=== PATIENT | female | born 1940 | race Caucasian/White ===

== ENCOUNTER 2017-01-22 11:47 | Inpatient (IN) | payer OTHER ==
[~2017-01-22] VITALS: Ht 154.9 cm; Wt 81.6 kg
--- NOTE | ~2017-01-22 | H ---
[facility] [place] [address] HISTORY AND PHYSICAL Name: ISACC HUDSON Room #: 315-P ADM IN M.R.#: [id number] Admission: 01/22/17 Attend Phys: Eligio Brooks MD Discharge: Date of : 41 Report #: [id number] THIS REPORT FOR: //name// CC: Eligio Gant MD DATE OF SERVICE: 01/22/2017 REASON FOR ADMISSION: Possible seizure. HISTORY OF PRESENT ILLNESS: The patient is a pleasant 76-year-old female with multiple medical problems including coronary artery disease and CABG, hypothyroid, diabetes, hyperlipidemia, and COPD. She reportedly was in her wheelchair earlier today when she experienced a seizure-like episode. The patient herself has no recollection of this event and history was provided by her family who brought her to the emergency room. She reportedly was asymptomatic in her wheelchair, though she reports she had been feeling somewhat nauseated earlier in the day and also had some mild episodes of loose stools about 2-3 earlier today. She subsequently was noted to have shaking of her body and extremities following with some questionable eye rolling. Per the patient, she did not have any subsequent confusion and when seen by me today, she reports she is fully back to her baseline with no ongoing symptoms or complaints. She denies specific numbness, weakness, chest pain, fevers, chills, nausea, vomiting, diarrhea, dizziness, headaches, or other problems at this time. She is being admitted for further workup of possible seizure. PAST MEDICAL HISTORY: Includes: 1. Coronary artery disease with prior PCI times 5. 2. CABG in December 2014, at [facility]. 3. Hypothyroidism. 4. Diabetes. 5. Hyperlipidemia. 6. COPD. 7. Anxiety. 8. Depression. 9. Chronic pain. 10. Morbid obesity and spinal stenosis. PAST SURGICAL HISTORY: Includes: 1. Multiple stents and CABG in December. 2. Thyroidectomy. 3. Abdominal sleeve surgery for weight loss. 4. Umbilical hernia repair and cholecystectomy. 5. Bilateral tubal ligation. 6. Brain stem tumor and breast reduction. 7. Fusion surgery. [facility] [address] [place] [address] HISTORY AND PHYSICAL Name: SEPTEMBERISACC Room #: 315-P ADM IN ..#: [id number] Admission: 01/22/17 Attend Phys: Eligio Brooks MD Discharge: Date of : 41 Report #: [id number] MEDICATIONS: Refer to reconciliation note. Of note, the patient presently has been taken off blood pressure medications including metoprolol and lisinopril due to low blood pressure and has had cut down in her glimepiride dose. SOCIAL HISTORY: Remote tobacco use, quit many years ago. No alcohol use. Multiple children. FAMILY HISTORY: Brother had lupus and lung disease. Another brother from kidney failure. ALLERGIES: Reported COREG, reaction is unknown. PHYSICAL EXAMINATION: VITAL SIGNS: The patient's vitals today, she is afebrile, pulse of 52, respiratory rate of 15, O2 sat 96 on room air, and blood pressure 127/37. GENERAL: Awake, alert, in no acute distress. HEENT: Unremarkable. NECK: No JVD or thyromegaly. CARDIOVASCULAR: S1, S2 present, regular. present bilaterally. ABDOMEN: Soft, nontender. EXTREMITIES: Without edema. NEUROLOGIC: Awake, alert. No obvious focal findings. Good strength in all extremities. SKIN: Unremarkable. No rash or lesions. LABS AND INVESTIGATIONS: CBC notable for anemia 10.6, hemoglobin 9, platelet count low at 115. Chemistry with creatinine of 1.5, otherwise unremarkable. Urinalysis unremarkable. Head CT shows questionable right inferior basal ganglia lacunar infarct versus volume averaging. No other focal findings. ASSESSMENT: This is a 76-year-old female who presented with a possible seizure episode. PLAN: 1. Questionable seizure. At the present time, I will complete further workup of the same with an EEG as well as an MRI and involve neurology to further on the patient. She is asymptomatic at this time. This may have been a hypoglycemic event, she has had recent trouble with hypoglycemia and has had a glimepiride dose decreased, we will monitor her on sliding scale coverage while inpatient. 2. Diabetes, on glimepiride to be continued and continue sliding scale coverage. 3. Hypertension. Home meds adjusted and resumed. 4. CAD, stable. [address] [address] HISTORY AND PHYSICAL Name: ISACC HUDSON Room #: 315-P ADM IN M.R.#: [id number] Admission: 01/22/17 Attend Phys: Eligio Brooks MD Discharge: Date of : 41 Report #: [id number] 5. DVT prophylaxis with Lovenox. 6. Anemia and thrombocytopenia, chronic and stable. <ELECTRONICALLY SIGNED> By: Eligio Brooks MD 01/23/17 1504 1350 1613 Eligio Brooks MD /nt
[~2017-01-22 11:47] MED LIST: ABILIFY 5 MG TAB5 M1 PO; ACETAMINOPHEN650 M5; ADULT LOW DOSE81 MG PO; ADVAIR 250-501 EACH INH; AMARYL; AMARYL2 MG PO; AMARYL4 MG PO; AMBIEN 10 MG TA10 MG PO; AMLODIPINE BESYL5 MG PO; ASA5UEC PO; ASPIRIN; ASPIRIN EC325 M1 PO; ASPIRIN81 M2; ASPIRIN81 M2 PO; ATIVAN1 MG; ATIVAN1 MG PO; AUGMENTIN 500-1 EACH PO; BYETTA PEN 51 PENIN1 SQ; BYSTOLIC 5 MG5 M1 PO; BYSTOLIC10 MG PO; CEFDINIR300 MG PO; CELEXA 20 MG TA20 M1 PO; CELEXA40 MG PO; CIPRO250 M1 PO; CLONAZEPAM 0.50.5 M1 PO; CLOTRIMAZOLE PO; COMBIVENT INH; COMBIVENT INHALER INH; COREG PO; CYMBALTA60 MG; CYMBALTA60 MG PO; DEXILANT60 MG PO; DHA100 MG PO; DUONEB 2.5-0.5 M3 ML INH; ENDOCET 10-3251 EACH PO; FENOFIBRATE145 M1 PO; FISH OIL 1,0001 EAC5; FISH OIL 1,0001 EAC5 PO; FLEXERIL PO; FOSAMAX 70 MG T70 M1 PO; FUROSEMIDE 40 M40 M1 PO; FUROSEMIDE 80 M80 M1 OR; FUROSEMIDE 80 M80 M1 PO; FUROSEMIDE PO; GLUCOPHAGE1000 MG OR; GLUCOPHAGE1000 MG PO; HUMULINR100 SC; HYDROCODON-ACE1 EAC4 PO; HYDROCODON-ACE1 EAC8 PO; HYDROCODONE-AP1 EACH PO; IBUPROFEN 800800 M1 PO; INSULIN REGULAR; JANUMET 50-5001 EACH PO; K-DUR 20 MEQ T20 MEQ PO; KEFLEX500 MG PO; LANTUS SC; LANTUS SQ; LANTUSSOLASTAR SQ; LANTUSSOLASTAR SUBQ; LASIX 40 MG TAB40 M1 PO; LEVAQUIN 500 M500 M2 OR; LEVOTHYROXIN0.112 M1 PO; LEVOTHYROXIN0.125 M1 PO; LIDODERM; LISINOPRIL10 MG PO; LISINOPRIL2.5 MG PO; LOPRESSOR; LOPRESSOR 12.12.5 MG PO; LOPRESSOR 50 MG50 M1 PO; LOPRESSOR PO; LOPRESSOR25 PO; LORTAB 10 MG-3473 ML PO; LOTRIMIN AF10 ML PO; LOVAZA1000 MG PO; METFORMIN; METHADONE HCL 110 M1 PO; METHADONE HCL 110 MG PO; METOCLOPRAMIDE; MINITRAN1 EAC2 TRANSDERM; MOBIC15 MG PO; MOM; NITRODUR; NITROGLYCERIN0.4 MG SUBLING; NITROGLYCERIN1 EAC1 TRANSDERM; NITROPATCH; NITROPATCH TD; NITROQUICK0.4 MG SUBLING; NITROSTAT0.4 MG SL; NORCO 10-325 T1 EACH PO; NORTRIPTYLINE H25 M3 PO; NOVOLOG100 UNIT/1; NOVOLOG100 UNIT/1 SQ; NOVOLOG100 UNIT/1 SUBQ; OMEPRAZOLE20 MG PO; OMEPRAZOLE40 MG PO; PHENERGAN 25 MG25 M1 PO; PLAVIX 75 MG TA75 MG PO; POTASSIUM20 PO; PREDNISONE 10 M10 M1 PO; PREDNISONE 20 M20 MG PO; PRILOSEC 20 MG20 MG PO; PRINIVIL10 MG PO; PRINIVIL20 MG PO; PROAIR HFA8.5 GM INH; PROVENTIL HFA6.7 G1 INH; SENNA PO; SIMVASTATIN20 MG PO; SPIRIVA INH; SYNTHROID150 MCG PO; TOPROL XL25 MG PO; TOPROL XL50 MG PO; TRAMADOL; TRAMADOL 50 MG50 MG PO; TRICOR145 MG PO; TUMS PO; TYLENOL325 MG PO; VENTOLIN HFA INH8 GM INH; VITAMIN D31000 UNI2 PO; VITAMIN D350000 UNIT PO; VITAMIN E1000 UNI3 PO; WELLBUTRIN SR150 MG PO; ZOCOR 20 MG TAB20 M1 PO; ZOCOR40 MG PO; ZOFRAN 4 MG ORAL4 M1 DIS; ZOFRAN4 MG PO; ZOLOFT 50 MG TA50 M1 PO; [UNRECOGNIZED DRUG - OTHER]; [UNRECOGNIZED DRUG - OTHER]; [UNRECOGNIZED DRUG - OTHER]; [UNRECOGNIZED DRUG - OTHER] TD
[2017-01-22 11:48] VITALS: BP 114/40
[2017-01-22] MEDS ORDERED: ZANAFLEX4 MG PO (12:03)
[2017-01-22] MEDS ORDERED: TRAZODONE 150150 M1 PO (12:03)
[2017-01-22] MEDS ORDERED: LEXAPRO 10 MG T10 M1 PO (12:04)
[2017-01-22] MEDS ORDERED: TOPROL XL25 MG PO (12:04)
[2017-01-22] MEDS ORDERED: SYMBICORT160 MCG/4. INH (12:04)
[2017-01-22] MEDS ORDERED: PRAZOSIN 1 MG CA1 M1 PO (12:05)
[2017-01-22 12:12] LABS: ABSOLUTE NEUTROPHILS 3.8 thou/uL (1.4-8.2); BASOPHILS 0.5 % (0.0-2.0); EOSINOPHILS 1.1 % (0.0-3.0); HEMATOCRIT 32.1 % (37.0-47.0); HEMOGLOBIN 10.6 gm/dL (12.0-15.0); LYMPHOCYTES 21.4 % (24.0-44.0); MCH 29.2 pg (26.0-34.0); MCHC 33.1 g/dL (28.0-37.0); MCV 88.2 fL (80.0-100.0); MONOCYTES 6.9 % (1.0-8.0); PLATELET COUNT 115 thou/uL (150-400); POLYS 70.1 % (36.0-66.0); RBC 3.64 mil/uL (4.20-5.00); RDW 14.9 % (10.5-14.5); WBC 5.4 thou/uL (4.0-11.0)
[2017-01-22 12:19] LABS: CALCIUM 8.9 mg/dL (8.5-10.1); CREATININE 1.5 mg/dL (0.6-1.0); POTASSIUM 3.8 mmol/L (3.5-5.1)
[2017-01-22 12:24] LABS: MANUAL DIFF NO
[2017-01-22 13:13] LABS: URINE BILIRUBIN NEGATIVE (Negative); URINE BLOOD NEGATIVE (Negative); URINE COLOR YELLOW; URINE GLUCOSE-RANDOM* NEGATIVE (Negative); URINE KETONES NEGATIVE (Negative); URINE NITRITE NEGATIVE (Negative); URINE PROTEIN (DIPSTICK) NEGATIVE (Negative); URINE UROBILINOGEN 0.2 E.U./dl (0.2-1.0)
[2017-01-22 14:02] VITALS: BP 112/43
[2017-01-22 18:21] LABS: CHOLESTEROL 114 mg/dL (<200); HDL CHOLESTEROL 48 mg/dL (>40); LDL CHOLESTEROL 40 mg/dL (<100); TC:HDL 2.4 Ratio (Not establshd); TRIGLYCERIDE 134 mg/dL (<150); VLDL 27 mg/dL (<40)
[2017-01-22 19:16] LABS: FOLIC ACID 27.9 ng/mL (8.6-58.9)
[2017-01-22 20:45] VITALS: BP 177/56
[2017-01-22 23:45] VITALS: BP 160/61
[2017-01-23 04:15] VITALS: BP 128/51
[2017-01-23 06:08] LABS: GLYCOHEMOGLOBIN (HGB A1C) 5.2 % (4.8-5.6)
[2017-01-23 07:10] LABS: FREE T4 1.17 ng/dL (0.82-1.77)
[2017-01-23 11:49] VITALS: BP 112/54
[2017-01-23 15:09] VITALS: BP 112/54
[2017-01-24 13:10] LABS: ALPHA TOCOPHEROL 9.4 mg/L (6.5-21.5)
== END 2017-01-23 16:45 | disposition home or self-care (01) | DRG 101 ==
LOC: ER 11:47 → 3N 13:01 → EROBS 13:01 → 3N 14:04
PROVIDERS: Emergency Medicine; Psychiatry & Neurology Neurology
DX: R56.9 Unspecified convulsions (principal); E11.649 Type 2 diabetes mellitus with hypoglycemia without coma; I10 Essential (primary) hypertension; J44.9 Chronic obstructive pulmonary disease, unspecified; K21.9 Gastro-esophageal reflux disease without esophagitis; I25.10 Atherosclerotic heart disease of native coronary artery without angina pectoris; E89.0 Postprocedural hypothyroidism; E78.5 Hyperlipidemia, unspecified; E78.00 Pure hypercholesterolemia, unspecified; F32.9 Major depressive disorder, single episode, unspecified; F41.9 Anxiety disorder, unspecified; G89.29 Other chronic pain; E86.0 Dehydration; E66.01 Morbid (severe) obesity due to excess calories; D64.9 Anemia, unspecified; D69.6 Thrombocytopenia, unspecified; Z96.1 Presence of intraocular lens; I25.2 Old myocardial infarction; Z98.1 Arthrodesis status; Z84.89 Family history of other specified conditions; Z83.6 Family history of other diseases of the respiratory system; Z90.49 Acquired absence of other specified parts of digestive tract; Z95.1 Presence of aortocoronary bypass graft; Z98.42 Cataract extraction status, left eye; Z98.41 Cataract extraction status, right eye; Z90.3 Acquired absence of stomach [part of]; Z68.34 Body mass index [BMI] 34.0-34.9, adult; Z79.82 Long term (current) use of aspirin; Z79.899 Other long term (current) drug therapy; Z88.8 Allergy status to other drugs, medicaments and biological substances; Z87.891 Personal history of nicotine dependence; Z84.1 Family history of disorders of kidney and ureter; Z98.51 Tubal ligation status
CPT/HCPCS: 10096

== ENCOUNTER 2021-05-06 08:30 | Inpatient (IN) | payer OTHER, MEDICARE ==
[~2021-05-06] VITALS: Ht 152.4 cm; Wt 82.5 kg
--- NOTE | ~2021-05-06 | EMS ---
[facility] [address] [place] [address] EMS Patient Care Report Name: ISACC HUDSON Room #: 450-P [facility] IN M.R.#: [id number] Admission: 05/06/21 Attend Phys: Janak Houser MD Discharge: 05/11/21 Date of : 41 Report #: [id number] THIS REPORT FOR: //name// Report Transmitted: 05/06/2021 09:17 EMS Care Summary [place], [place]/[facility] Incident [id number] @ 05/06/2021 07:42 Incident Location [address] [place], [place] [id number] Patient ISACC HUDSON Female, 81 Years 1940 Patient Address [address] [place] [address] Patient History Diabetes,Hypertension (HTN),Cardiac Condition - Other,Cardiac - Stent, Patient Allergies Other drug allergy, Chief Complaint GI bleed/black stools Disposition Transported No Lights/[place] Dispatch Reason Hemorrhage/Laceration Transported To [facility] Narrative pt found ambulatory w/ Pumper 42 on scene. pt reports this AM she had sudden large amount of diarrhea/black stool. pt has hx of GI bleed approx 10-12 years ago. pt req eval at [facility]. she denies any pain or nausea. pt to cot, tx as listed in flow chart, transport w/o incident. pt in POC, rests quietly. Initial Vitals [facility] [address] [place] [address] EMS Patient Care Report Name: ISACC HUDSON Room #: 450-P [facility] IN M.R.#: [id number] Admission: 05/06/21 Attend Phys: Janak Houser MD Discharge: 05/11/21 Date of : 41 Report #: [id number] @08:15P: 96,R: 18,BP: 80/43, @07:59P: 110,R: 18,BP: 115/50,Pain: 0/10,GCS: 15,SpO2: 96,Revised Trauma: 12, Assessments @07:56MENTAL:No Abnormalities,SKIN:No Abnormalities,HEENT:Head/Face: No Abnormalities,LUNG SOUNDS:General: Diarrhea,ABDOMEN:General: Diarrhea,PELVIS//GI:EXTREMITIES:PULSE:Radial: 2+ Normal,NEURO:No Abnormalities, Impression Gastrointestinal hemorrhage Procedures @07:56ALS AssessmentResponse: Unchanged@07:57StretcherResponse: Unchanged@07:593-Lead ECGResponse: Unchanged@08:05Saline Lock 10cc (20 ga) Site: Antecubital-LeftResponse: UnchangedSucceeded Timeline 07:38,Call Received 07:38,Dispatch Notified 07:42,Dispatched 07:44,En Route 07:55,On Scene 07:56,At Patient 07:56,ALS Assessment,Response: Unchanged 07:57,Stretcher,Response: Unchanged 07:59,3-Lead ECG,Response: Unchanged 07:59,BP: 115/50 M,PULSE: 110,RR: 18 R,SPO2: 96 Ox,ETCO2: ,BG: ,PAIN: 0,GCS: 15, 08:05,Saline Lock 10cc 20 ga Site: Antecubital-Left,Response: UnchangedSucceeded, 08:08,Depart Scene 08:15,BP: 80/43 M,PULSE: 96,RR: 18 R,SPO2: Ox,ETCO2: ,BG: ,PAIN: ,GCS: , 08:37,At Destination 08:40,Call Closed Disclaimer v1.1 Copyright 2020 [employer] This EMS Care Summary contains data elements from the applicable legal record (which may be displayed differently). It is designed to provide pertinent information for the following purposes: continuity of care, clinical quality, and state data reporting. The complete legal record is available to ED staff and administrators of the receiving hospital in [employer]'s Patient Tracker. All data is provided "as is."
[~2021-05-06 08:30] MED LIST changes: +LEXAPRO 10 MG T10 M1 PO; +PRAZOSIN 1 MG CA1 M1 PO; +SYMBICORT160 MCG/4. INH; +TRAZODONE 150150 M1 PO; +ZANAFLEX4 MG PO
[2021-05-06 08:32] VITALS: BP 108/42
[2021-05-06 09:34] LABS: ABSOLUTE NEUTROPHILS 4.5 thou/uL (1.4-8.2); BASOPHILS 0.4 % (0.0-2.0); HEMATOCRIT 28.9 % (37.0-47.0); HEMOGLOBIN 9.4 gm/dL (12.0-15.0); LYMPHOCYTES 27.7 % (24.0-44.0); MCH 29.3 pg (26.0-34.0); MCHC 32.6 g/dL (28.0-37.0); MONOCYTES 7.3 % (1.0-8.0); PLATELET COUNT 100 thou/uL (150-400); POLYS 62.6 % (36.0-66.0); RBC 3.22 mil/uL (4.20-5.00); RDW 13.9 % (10.5-14.5); WBC 7.2 thou/uL (4.0-11.0)
[2021-05-06 09:37] LABS: APTT 25.4 Seconds (24.5-32.8); INR 1.04; PROTIME 11.3 Seconds (10.5-12.1)
[2021-05-06 09:41] LABS: CALCIUM 9.6 mg/dL (8.5-10.1); CREATININE 1.4 mg/dL (0.6-1.0); POTASSIUM 4.2 mmol/L (3.5-5.1)
[2021-05-06 09:50] LABS: ALBUMIN 2.8 g/dL (3.4-5.0); TOTAL BILIRUBIN 0.4 mg/dL (0.2-1.0); TOTAL PROTEIN 5.7 g/dL (6.4-8.2)
[2021-05-06 12:03] VITALS: BP 116/48
--- NOTE | 2021-05-06 12:11 | EKG ---
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 : 1940 Requested By: Kun Guan Order Number: [id number] MD: Eduin Fang Measurements Intervals [place] Rate: 79 P: 73 TN: 211 QRS: 20 QRSD: 150 T: -84 QT: 438 QTc: 503 Interpretive Statements Atrial-sensed ventricular-paced rhythm No further analysis attempted due to paced rhythm Baseline wander in lead(s) V1 No previous ECG available for comparison Electronically Signed On 05-06-2021 12:10:57 CDT by Eduin Fang [email or web address] <ELECTRONICALLY SIGNED> By: Eduin Fang MD, [facility] 05/06/21 1210 0844 0844 Eduin Fang MD, [facility] /EPI
[2021-05-06 13:33] LABS: URINE BILIRUBIN NEGATIVE (Negative); URINE BLOOD 1+ (Negative); URINE CLARITY SL CLOUDY; URINE COLOR YELLOW; URINE GLUCOSE-RANDOM* NEGATIVE (Negative); URINE KETONES NEGATIVE (Negative); URINE PROTEIN (DIPSTICK) NEGATIVE (Negative); URINE SPECIFIC GRAVITY 1.025 (1.005-1.035); URINE UROBILINOGEN 0.2 E.U./dl (0.2-1.0)
[2021-05-06 13:36] LABS: URINE LEUKOCYTES-REFLEX 1+ (Negative); URINE NITRITE-REFLEX POSITIVE (Negative)
[2021-05-06 13:43] VITALS: BP 112/53
[2021-05-06 13:51] LABS: BACTERIA-REFLEX >30 Many /HPF (None Seen); CRYSTALS None Seen /LPF (None Seen); HYALINE CASTS 0-3 Few /LPF (None Seen); SQUAMOUS >10 Many /LPF (0-3); URINE RBC 1-2 Rare /HPF (NONE SEEN); URINE WBC-REFLEX >25 Many /HPF (0-5)
[2021-05-06 14:30] VITALS: BP 133/66
[2021-05-06] MEDS ORDERED: KLOR-CON M2020 MEQ PO (15:44)
[2021-05-06] MEDS ORDERED: FUROSEMIDE 20 M20 MG PO (15:45)
[2021-05-06] MEDS ORDERED: ISOSORBIDE MON120 MG PO (15:48)
[2021-05-06] MEDS ORDERED: CHILDREN'S ASPI81 M1 PO (15:49)
[2021-05-06] MEDS ORDERED: LEVO-T100 MCG PO (15:49)
[2021-05-06] MEDS ORDERED: PROTONIX40 M2 PO ×2 (15:50→15:57)
[2021-05-06] MEDS ORDERED: PRIMIDONE50 MG PO (15:50)
[2021-05-06] MEDS ORDERED: COLACE100 MG PO (15:51)
[2021-05-06] MEDS ORDERED: ALPHA LIPOIC A200 M1 PO (15:52)
[2021-05-06] MEDS ORDERED: VITAMIN D310 MC2 PO (15:52)
[2021-05-06] MEDS ORDERED: IRON18 M1 PO (15:53)
[2021-05-06] MEDS ORDERED: GLIMEPIRIDE1 MG PO (16:02)
[2021-05-06] MEDS ORDERED: PRAVASTATIN SOD40 MG PO (16:03)
--- NOTE | 2021-05-06 16:51 | NUR ---
PATIENT ARRIVED FROM GI LAB POST EGD AT APPROX 1630. PATIENT SEEMINGLY TIRED BUT A&OX4. PROTONIX IV DRIP INFUSINHGH ON LAC. EGD CAME BACK NEGATIVE; COLONOSCOPY TO BE DONE TOMORROW AM. PATIENT ON CLEAR LIQUIDS NOW, NPO AFTER MIDNIGHT. PATIENT WAS X1 TO BSC AND DID WELL. MED REC COMPLETE & PROVIDER NOTIFIED TO RESTART MEDS. AWARE OF H&H; STILL PENDING RECENT BLOOD DRAW. 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 FALL PRECAUTIONS REMAIN IN PLACE. FREQUENT MONITORING CONTINUED
[2021-05-06 18:27] LABS: HEMATOCRIT 24.4 % (37.0-47.0); HEMOGLOBIN 7.9 gm/dL (12.0-15.0)
[2021-05-06 19:31] VITALS: BP 101/49
--- NOTE | 2021-05-07 02:34 | NUR ---
TODAY THIS PT HAS BEEN A/V PACED ON THE HEART MONITOR WITH SOME ABDOMIAL DISCOMFORT. SHE HAS HAD A FEW VERY BLOODY STOOLS IN WHICH SHE DID STATE THAT SHE DIDN'T FEEL TO GOOD. SHE HAD STABLE VS WERE COMPLETED AND HOSPITALIST WAS CONTACTED NO NEW ORDERS WERE GIVEN. OTHERWISE SHE HAS FINISHED HER BOWEL PREP AND HAS BEEN ASLEEP FOR SOME OF THE NIGHT WELL NPO SINCE MIDNIGHT PENDING HER PROCEDURE TODAY.
[2021-05-07 06:07] LABS: HEMATOCRIT 22.7 % (37.0-47.0); HEMOGLOBIN 7.3 gm/dL (12.0-15.0); MCH 29.2 pg (26.0-34.0); MCHC 32.3 g/dL (28.0-37.0); MCV 90.2 fL (80.0-100.0); RBC 2.51 mil/uL (4.20-5.00); RDW 14.2 % (10.5-14.5); WBC 5.6 thou/uL (4.0-11.0)
[2021-05-07 06:20] LABS: CALCIUM 8.7 mg/dL (8.5-10.1); CREATININE 1.4 mg/dL (0.6-1.0); POTASSIUM 3.9 mmol/L (3.5-5.1)
[2021-05-07 07:52] VITALS: BP 121/49
--- NOTE | 2021-05-07 10:06 | P ---
[facility] [place] [address] [place] [address] PROCEDURE REPORT Name: ISACC HUDOSN Room #: 450-P [facility] IN M.R.#: [id number] Admission: 05/06/21 Attend Phys: Janak Houser MD Discharge: 05/11/21 Date of : 41 Report #: [id number] THIS REPORT FOR: cc: Asad Reyes MD, Matthew S. MD McElhinney, Christian C. MD ~ cc: Janak Collado MD DATE OF SERVICE: 05/07/2021 PROCEDURE PERFORMED: Colonoscopy with biopsies and bleeding control. HISTORY OF PRESENT ILLNESS: The patient is an 81-year-old female who presented through the emergency room on 05/05/2021 with melanotic stools, generalized weakness. She does have a history of gastroesophageal reflux disease. She is on Protonix b.i.d. with Pepcid. Her admitting hemoglobin was 9.4, it dropped to 7.3. I performed an upper endoscopy on her yesterday, which showed a mild patch of gastritis, but otherwise normal. No stigmata of bleeding. No evidence of blood throughout the upper exam. Her last colonoscopy was greater than 10 years ago. No family history of colon cancer. The patient had been on aspirin, which has been held. She also has been on oral iron. Plan is for a colonoscopy. DESCRIPTION OF PROCEDURE: The risks and benefits of the procedure were explained to the patient, those risks including but not limited to bleeding, perforation and the risk of sedation. She understood these risks and gave informed consent. Sedation was given using propofol per anesthesia. Next, a digital rectal exam was initially performed, which was normal. Next, using a standard Olympus colonoscope, the scope was placed in the patient's anus and advanced under direct vision to the cecum. The overall prep was excellent. The cecum and ileocecal valve were normal in appearance. There was some small amount of bright red blood and old blood mixed in the ascending colon. The terminal ileum was intubated, which was normal. In the ascending colon, multiple diverticula were noted, one in particular had what appeared to be a fresh clot on the edge. I suspect this was likely a source of recent diverticular bleed. This was treated with two endoclips. No evidence of bleeding after endoclip was placed. Again, there was no active bleeding, but a fresh clot was noted right on the edge of the diverticulum. Near the hepatic flexure was a 2 cm lipoma. No stigmata of bleeding. In the ascending colon also was a 4 mm sessile polyp. This was removed with cold forceps. In the transverse, descending and sigmoid colon, multiple diverticula were also noted, but no stigmata of bleeding. The rectal mucosa was normal. On retroflexion, no abnormalities were noted. The scope was then withdrawn and the procedure terminated. The patient tolerated the procedure well. IMPRESSION: 1. Suspect diverticular bleed from ascending colon, one with a fresh clot [address] [address] PROCEDURE REPORT Name: ISACC HUDSON Room #: 450-P [facility] IN M.R.#: [id number] Admission: 05/06/21 Attend Phys: Janak Houser MD Discharge: Date of : 41 Report #: [id number] noted. No active bleeding at this time, but again suspect this may have been the etiology of recent melanotic stools. This was treated with two endoclips. 2. Small ascending colon polyp removed. 3. Lipoma. 4. Pandiverticulosis. RECOMMENDATIONS: 1. Await biopsy results. 2. Observe the patient post-procedure. 3. We will advance diet and continue to monitor hemoglobin closely. Thank you for allowing me to participate in her care. <ELECTRONICALLY SIGNED> By: Bin Corey MD 05/07/21 1006 0841 0900 Bin Corey MD /nt
--- NOTE | 2021-05-07 10:06 | P ---
[facility] [place] [address] PROCEDURE REPORT Name: ISACC HUDSON Room #: 450-P [facility] IN M.R.#: [id number] Admission: 05/06/21 Attend Phys: Janak Houser MD Discharge: 05/11/21 Date of : 41 Report #: [id number] THIS REPORT FOR: cc: Asad Reyes MD, Matthew S. MD McElhinney, Christian C. MD ~ cc: Asad Reyes DATE OF SERVICE: 05/06/2021 PROCEDURE PERFORMED: Upper endoscopy. HISTORY OF PRESENT ILLNESS: The patient is an 81-year-old female who reports melanotic stools starting last evening. She does take oral iron, but she states these stools were different in color and consistency than previously. She has a history of gastroesophageal reflux disease, takes Protonix b.i.d. and Pepcid daily. She denies any dysphagia. Last EGD and colonoscopy more than 10 years ago. She denies any significant abdominal pain. She does take aspirin on a daily basis as well as NSAIDs on a p.r.n. basis. Plan is for upper endoscopy. Hemoglobin on admission is 9.4. DESCRIPTION OF PROCEDURE: The risks and benefits of the procedure were explained to the patient, those risks including but not limited to bleeding, perforation, and the risk of sedation. She understood these risks and gave me informed consent. Sedation was given using propofol per anesthesia. Next, using a standard Olympus upper endoscope, the scope was placed in the patient's mouth and advanced under direct vision through the esophagus, stomach and into the second portion of the duodenum. The larynx was normal in appearance. The esophagus was normal throughout. The GE junction was normal. Upon entering the stomach, a small hiatal hernia was noted. A small area of gastritis was noted in the upper gastric body. No evidence of ulcerations or erosions. There was no evidence of blood throughout the exam today. Otherwise, normal gastric mucosa. The pylorus was normal and patent. The duodenal bulb, first and second portion were all normal. The scope was then withdrawn and the procedure terminated. The patient tolerated the procedure well. IMPRESSION: 1. Mild area of gastritis. No active bleeding, no ulcerations. 2. Small hiatal hernia. 3. Otherwise, normal upper endoscopy. RECOMMENDATIONS: We will discuss options with the patient. We would consider proceeding with colonoscopy next tomorrow. [address] [address] PROCEDURE REPORT Name: ISACC HUDSON Room #: 450-P [facility] IN M.R.#: [id number] Admission: 05/06/21 Attend Phys: Janak Houser MD Discharge: Date of : 41 Report #: [id number] Thank you for allowing me to participate in her care. <ELECTRONICALLY SIGNED> By: Bin Corey MD 05/07/21 1006 1424 01 Bin Corey MD /spike
--- NOTE | 2021-05-07 10:59 | NUR ---
ASSUMED PT CARE THIS AM. PT A&OX4, ABLE TO MAKE NEEDS KNOWN. PATIENT REPORTED NO PAIN, BUT REPORTED FEELING WEAK. PATIENT BED ALARM IS ON AND REMINDED TO CALL WHEN NEEDED. PATIENT HAD A COLONOSCOPY THIS AM. MEDICAITONS TAKEN WITHOUT ISSUE FOLLOWING COLONOSCOPY. PATIENT IS UP AROUND ROOM WITH ASSIST, REMAINS CONTINENT. IV PATENT, MEDICATION INFUSING. CALL LIGHT WITHIN REACH.
[2021-05-07 16:05] VITALS: BP 100/36
[2021-05-07 19:04] VITALS: BP 119/36
[2021-05-08] VITALS (8 sets, daily range): BP systolic 100–141; BP diastolic 35–89
--- NOTE | 2021-05-08 02:22 | NUR ---
patient c/o soa with activities, o2 sat was 96%, 2 litres given. patient in bed asleep at this time no soa or distres noted. no gi bleed this shift. patient is on stand by assist patient ambulates with steady gaits. patient in bed asleep at this time breathing regular and unlaboured.
[2021-05-08 05:35] LABS: MCH 29.7 pg (26.0-34.0); RBC 2.07 mil/uL (4.20-5.00); WBC 5.8 thou/uL (4.0-11.0)
[2021-05-08 05:38] LABS: MCHC 33.1 g/dL (28.0-37.0); MCV 89.9 fL (80.0-100.0); RDW 14.4 % (10.5-14.5)
[2021-05-08 05:56] LABS: CALCIUM 8.2 mg/dL (8.5-10.1); CREATININE 1.4 mg/dL (0.6-1.0); POTASSIUM 3.7 mmol/L (3.5-5.1)
[2021-05-08 05:58] LABS: HEMATOCRIT 18.6 % (37.0-47.0); HEMOGLOBIN 6.2 gm/dL (12.0-15.0)
--- NOTE | 2021-05-08 11:33 | NUR ---
ASSUMED PT CARE THIS AM. PT A&OX4, ABLE TO MAKE NEEDS KNOWN. PATIENT REPORTING SOME WEAKNESS AND SHORTNESS OF BREATH WITH EXERTION. PATIENT TO GET A BLOOD TRANSFUSION THIS AM, COMPLETED WITHOUT ANY ISSUES. PATIENT REPORTING NO PAIN. PATIENT IS ON 2 LITERS OF OXYGEN VIA NC. PATIENT UP WITH ASSIST, REMAINS CONTINENT. MEDICATIONS TAKEN WITHOUT ISSUE. FALL PRECAUTIONS ARE IN PLACE.
[2021-05-08 13:29] LABS: HEMATOCRIT 25.4 % (37.0-47.0)
[2021-05-08 13:36] LABS: HEMOGLOBIN 8.3 gm/dL (12.0-15.0)
--- NOTE | 2021-05-09 00:51 | NUR ---
PATIENT AOX4 MAKES NEEDS KNOWN.PATIENT AMBULATES WITH STEADY GAITS. PATIENT DENIED PAIN OR DISCOMFORT. PATIENT ON 2L OF OXYGEN FOR COMFORT, NO SOA OR DISTRESS NOTED THIS SHIFT. FALL PRECAUTION IN PLACE.PATIENT IN BED ASLEEP AT THIS TIME BREATHING REGULAR AND UNLABOURED.
[2021-05-09 03:02] LABS: HEMATOCRIT 22.7 % (37.0-47.0); HEMOGLOBIN 7.5 gm/dL (12.0-15.0); MCHC 33.1 g/dL (28.0-37.0); MCV 90.4 fL (80.0-100.0); RBC 2.51 mil/uL (4.20-5.00); RDW 14.2 % (10.5-14.5); WBC 5.8 thou/uL (4.0-11.0)
[2021-05-09 03:21] LABS: CALCIUM 8.4 mg/dL (8.5-10.1); CREATININE 1.3 mg/dL (0.6-1.0); POTASSIUM 3.9 mmol/L (3.5-5.1)
[2021-05-09 07:45] VITALS: BP 118/46
[2021-05-09 10:14] LABS: % SATURATION 19 % (20-39); IRON 36 ug/dL (50-170); TIBC 192 ug/dL (250-450)
[2021-05-09 10:15] LABS: FOLIC ACID 6.7 ng/mL (8.6-58.9)
--- NOTE | 2021-05-09 12:02 | NUR ---
ASSUMED PT CARE THIS AM. PT A&OX4, ABLE TO MAKE NEEDS KNOWN. PATIENT REPORTING SHORTNESS OF BREATH WITH ACTIVITIES. ORDER RECIEVED FOR RT TREATMENTS. PATIENT REPORTING SOME WEAKNESS, AND NEUROPATHY TO BILATERAL FEET AND RIGHT HAND. IV PATENT, SALINE LOCKED. PATIENT ON 2 LITERS OXYGEN PRN. PATIENT REMAINS CONTINENT, UP WITH ASSIST TO THE BATHROOM. FALL PRECAUTIONS ARE IN PLACE, CALL LIGHT WITHIN REACH.
[2021-05-09 16:12] VITALS: BP 135/45
[2021-05-09 20:16] VITALS: BP 148/52
[2021-05-09 22:40] VITALS: BP 132/42
[2021-05-10] VITALS (7 sets, daily range): BP systolic 112–140; BP diastolic 44–60
--- NOTE | 2021-05-10 01:00 | NUR ---
pain controlled this shift. no bleeding noted this shift. patient had not had a bm since 05/07 and requested milarax in the am. patient ambulated to the bathroom with steady gaits. fall precaution in place. patient in bed asleep at this time breathing regular and unlaboured.
[2021-05-10 03:12] LABS: HEMATOCRIT 23.7 % (37.0-47.0); HEMOGLOBIN 7.9 gm/dL (12.0-15.0); MCH 30.1 pg (26.0-34.0); MCHC 33.2 g/dL (28.0-37.0); MCV 90.7 fL (80.0-100.0); RBC 2.61 mil/uL (4.20-5.00); RDW 14.5 % (10.5-14.5); WBC 5.3 thou/uL (4.0-11.0)
[2021-05-10 03:46] LABS: CALCIUM 8.6 mg/dL (8.5-10.1); CREATININE 1.2 mg/dL (0.6-1.0); MAGNESIUM 1.8 mg/dL (1.8-2.4)
--- NOTE | 2021-05-10 11:50 | NUR ---
ASSUMED PT CARE THIS AM. PT IS ALERT & ORIENTED X4. PT HAS IV SITE ON L UA. PT IS NO CODE. PT IS UP WITH ASSIST X1 WITH WALKER TO THE BATHROOM. PT IS ON TELE MONITOR ON. PT IS ON ROOM DURING DAY AND 2L AT NIGHT. PT IS ACCUCHECK ACHS. NO C/O NAUSEA AND VOMITING THIS AM. WILL CONTINUE TO MONITOR PT. FOLLOW POC.
--- NOTE | 2021-05-10 12:42 | 2DMMODE ---
[facility] [address] [place] [address] 2 D/M-MODE ECHOCARDIOGRAM Name: ISACC HUDSON Room #: 450-P [facility] IN M.R.#: [id number] Admission: 05/06/21 Attend Phys: Janak Houser MD Discharge: 05/11/21 Date of : 41 Report #: [id number] THIS REPORT FOR: cc: Asad Reyes MD, Matthew S. MD Park, Jin S. MD ~ APPROVED REPORT Study performed: 05/10/2021 11:50:30 EXAM: Comprehensive 2D, Doppler, and color-flow Echocardiogram Patient Location: Bedside Room #: 450 Status: routine BSA: 1.79 HR: 81 bpm BP: 117/47 mmHg Rhythm: Pacemaker Other Information Study Quality: Adequate Indications COPD Diabetes Dyspnea CAD Chest Pain Hypertension/HDD 2D Dimensions RVDd: 33.35 mm IVSd: 9.53 (7-11mm) LVOT Diam: 20.09 (18-24mm) LVDd: 48.75 mm PWd: 10.03 (7-11mm) Ascending Ao: 33.41 (22-36mm) LVDs: 35.95 (25-40mm) Left Atrium: 44.97 (27-40mm) Aortic Root: 32.20 mm IVC: 17.00 mm Volumes Left Atrial Volume (Systole) Single Plane 4CH: 77.07 mL Single Plane 2CH: 53.77 mL LA ESV Index: 41.00 mL/m2 [facility] [address] [place] [address] 2 D/M-MODE ECHOCARDIOGRAM Name: SEPTEMBER,ISACC Room #: 450-P [facility] IN ..#: [id number] Admission: 05/06/21 Attend Phys: Janak Houser, Discharge: Date of : 41 Report #: [id number] Aortic Valve AoV Peak Devon.: 1.77 m/s AO Peak Gr.: 12.51 mmHg LVOT Max P.55 mmHg LVOT Max V: 1.07 m/s ELMO Vmax: 1.91 cm2 Mitral Valve MV Peak Gr.: 15.43 mmHg MV Mean Gr.: 7.36 mmHg E/A Ratio: 0.8 MV Decel. Time: 335.75 ms MV E Max Devon.: 1.41 m/s MV A Devon.: 1.68 m/s MV Max Devon.: 1.96 m/s MV Mean Devon.: 1.27 m/s MV VTI: 422.47 mm MV PHT: 97.37 ms MVA (PHT): 2.69 cm2 IVRT: 106.11 ms Pulmonary Valve PV Peak Devon.: 1.21 m/s PV Peak Gr.: 5.86 mmHg Pulmonary Vein P Vein S: 0.52 m/s P Vein A: 0.23 m/s P Vein D: 0.31 m/s P Vein A Dur.: 110.7 msec P Vein S/D Ratio: 1.68 Tricuspid Valve TR Peak Devon.: 2.75 m/s TR Peak Gr.: 30.26 mmHg PA Pressure: 35.00 mmHg Left Ventricle The left ventricle is normal size. There is normal LV segmental wall motion. There is normal left ventricular wall thickness. The left ventricular systolic function is normal. The left ventricular ejection fraction is within the normal range. LVEF is 55-60%. Grade I - abnormal relaxation pattern. Right Ventricle The right ventricle is normal size. The right ventricular systolic function is normal. Pacemaker lead is present in the right ventricle. Atria Left atrium is dilated. Right atrium is at the upper limits of normal. Pacemaker lead is present in the right atrium. [facility] [address] [place] [address] 2 D/M-MODE ECHOCARDIOGRAM Name: ISACC HUDSON Room #: 450-P [facility] IN [facility]#: [id number] Admission: 05/06/21 Attend Phys: Janak Houser, Discharge: Date of : 42 Report #: [id number] Aortic Valve The Aortic valve is sclerotic. No aortic regurgitation is present. There is no aortic valvular stenosis. Mitral Valve The mitral valve is normal in structure. There is mitral annular calcification. Mild to moderate mitral regurgitation. No evidence of mitral valve stenosis. Tricuspid Valve The tricuspid valve is normal in structure. There is mild tricuspid regurgitation. Estimated PAP 38 mmHg. There is mild-moderate pulmonary hypertension. Pulmonic Valve The pulmonary valve is normal in structure. There is no pulmonic valvular regurgitation. Great Vessels IVC is normal in size and collapses >50% with inspiration. Pericardium There is no pericardial effusion. <Conclusion> The left ventricle is normal size. There is normal left ventricular wall thickness. The left ventricular systolic function is normal. Grade I - abnormal relaxation pattern. The right ventricle is normal size. Pacemaker lead is present in the right ventricle. Left atrium is dilated. The Aortic valve is sclerotic. There is mitral annular calcification. Mild to moderate mitral regurgitation. There is mild tricuspid regurgitation. Estimated PAP 38 mmHg. <ELECTRONICALLY SIGNED> By: Jaswinder Yhe MD 05/10/21 1241 1241 1241 Jaswinder Yeh MD /INF
--- NOTE | 2021-05-10 16:01 | NUR ---
PT ADMITTED RELATED TO GI BLEED, COLONOSCOPY-PANDIVERTICULOSIS. CM REVIEWED CHART AND SPOKE WITH CARE TEAM. CM MET WITH PT AT BEDSIDE THIS DAY. PT APPEARED TO BE A&O X4. CM ROLE INTRODUCED. PT INDICATED SHE LIVES IN A HOUSE WITH HER DTR JAUN WITH 2 STEPS TO ENTER AND NO STEPS INSIDE. 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 PT INDICATED SHE HAS A FWW AND A CANE FOR HOME USE. PT INDICATED SHE HAD HH IN THE PAST AND WOULD BE RECEPTIVE TO SERVICES AGAIN UPON DC. SHE INDICATED NO PREFERENCE FOR PROVIDER. CM TO SEND REFERRAL TO [facility]. PT TO HAVE STRESS TEST TOMORROW. CM FOLLOWING REGARDING DC PLANNING.
--- NOTE | 2021-05-11 00:39 | NUR ---
UPON SHIFT ASSESSMENT, PT AOX4. PT REPORTS 8/10 HEADACHE PAIN. PT RECEIVING PRN PO APAP Q4HR. PT DENIES SOB WHILE ON ROOM AIR, REFUSING O2 SUPPLEMENTATION AT HS. PT TOLERATING PO INTAKE OF FLUIDS AND REGULAR DIET WITHOUT ISSUE, NPO AT MIDNIGHT. PT WITHOUT NAUSEA OR EMESIS. PT AMBULATING WITH STANDBY ASSIST TO BATHROOM, GAIT STEADY. PT REPORTS CHRONIC NUMBNESS AND TINGLING IN RIGHT HAND AND RIGHT FOOT/TOES. CAPILLARY REFILL LESS THAN 3SEC, PERIPHERAL PULSES PALPABLE IN ALL EXTREMITIES. PT RESTING IN BED, FREQUENT REPOSITIONING ENCOURAGED. PT NOTED TO SHIFT INDEPENDENTLY WHILE IN BED. PT ENCOURAGED TO NOTIFY STAFF FOR ALL NEEDS, CALL LIGHT WITHIN REACH, BED ALARM ON, BED LOCKED IN LOWEST POSITION, FREQUENT MONITORING WILL CONTINUE.
[2021-05-11 03:30] VITALS: BP 136/44
[2021-05-11 07:04] VITALS: BP 135/55
--- NOTE | 2021-05-11 08:20 | EKG ---
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 ELENA : 1940 Requested By: Janak Houser Order Number: [id number] MD: Boubacar De Dios Measurements Intervals [place] Rate: 80 P: 87 CO: 209 QRS: 4 QRSD: 156 T: 193 QT: 412 QTc: 476 Interpretive Statements Atrial-sensed ventricular-paced rhythm No further analysis attempted due to paced rhythm Baseline wander in lead(s) V2 Compared to ECG 05/06/2021 08:44:46 No significant changes Electronically Signed On 05-11-2021 8:20:34 CDT by Boubacar De Dios [email or web address] <ELECTRONICALLY SIGNED> By: Boubacar De Dios MD, [facility] 05/11/21 0820 1029 1029 Boubacar De Dios MD, [facility] /EPI
[2021-05-11 12:01] LABS: HEMATOCRIT 26.9 % (37.0-47.0); HEMOGLOBIN 8.6 gm/dL (12.0-15.0); MCH 29.3 pg (26.0-34.0); MCHC 32.1 g/dL (28.0-37.0); MCV 91.3 fL (80.0-100.0); RBC 2.95 mil/uL (4.20-5.00); RDW 14.8 % (10.5-14.5); WBC 6.4 thou/uL (4.0-11.0)
[2021-05-11 12:16] VITALS: BP 135/55
[2021-05-11 12:17] LABS: CREATININE 1.1 mg/dL (0.6-1.0); POTASSIUM 3.9 mmol/L (3.5-5.1)
--- NOTE | 2021-05-11 12:27 | NUR ---
PT HAVING STRESS TEST THIS DAY. DEPENDING ON RESULTS OF STRESS TEST PT MAY BE MEDICALLY STABLE TO DC HOME WITH HH THIS DAY. [facility] ACC[facility]PT PT. ORDERS TO BE FAXED ONCE COMPLETED. CM FOLLOWING REGARDING DC PLANNING.
[2021-05-11] MEDS ORDERED: IRON325 PO (14:42)
[2021-05-11] MEDS ORDERED: IPRAT-ALBUT 0.5-3 ML INH (14:42)
[2021-05-11] MEDS ORDERED: TORSEMIDE20 MG PO (14:42)
[2021-05-11 14:56] VITALS: BP 135/55
[2021-05-11 15:02] VITALS: BP 179/73
--- NOTE | 2021-05-11 16:42 | NUR ---
Pt A&Ox4, pt educated on discharge instructions, allowed to ask questions, all questions answered. Denies pain or discomfort. Able to make needs known. 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 Pt Iv removed, dressing applied. Patient discharged home to family. left via private vehicle with family member.
--- NOTE | 2021-05-11 19:07 | PATH ---
[facility] [address] [place] [address] PATHOLOGY RPT PROCEDURE Name: SEPTEMBER,ISACC Gregg Room #: 450-P [facility] IN M.R.#: [id number] Admission: 05/06/21 Date of : 42 Discharge: 05/11/21 Report #: [id number] Path Case #: [id number] [facility] Accession Number: [id number] . 01 Material submitted: . colon - ASCENDING COLON POLYP. Modifiers: ascending . 02 Diagnosis: Polyp, ascending colon polyp, endoscopic biopsy: - Tubular adenoma. - Negative for high-grade dysplasia. (IUV:marcelino; 05/11/2021) QMS 05/11/2021 1445 Local . 02 Electronically signed: . Riddhi Bone MD, Pathologist NPI- [id number] . 01 Gross description: . The specimen is received in formalin, labeled "Isacc September, ascending colon polyp". Received are two segments of pale zamarripa tissue measuring 0.3 cm each in maximum dimensions. The specimen is submitted entirely in cassette A1. (CAA; 05/10/2021) QAC/QAC 05/10/2021 0906 Local . 02 Pathologist provided ICD-10: D12.2 . 02 CPT . 300192 Specimen Comment: A courtesy copy of this report has been sent to [phone] Specimen Comment: Report sent to Performed at: [address], [place] [id number] MD Twin Nice MD Phone: [phone] Performed at: [address] [id number] MD Riddhi Bone MD Phone: [phone]
== END 2021-05-11 17:25 | disposition home health service (06) | DRG 378 ==
LOC: ER 08:30 → EROBS 10:26 → 4W 10:26 → EROBS 12:07 → 4W 13:43 → 4E 15:46 → 4W 16:05
PROVIDERS: Emergency Medicine; Nurse Practitioner Adult Health; ADMIT Internal Medicine; ATTEND Internal Medicine
PROC: 0DJ08ZZ Inspection of Upper Intestinal Tract, Via Natural or Artificial Opening Endoscopic (ICD-10-PCS; principal; 2021-05-06)
PROC: 0DBK8ZZ Excision of Ascending Colon, Via Natural or Artificial Opening Endoscopic (ICD-10-PCS; 2021-05-07)
PROC: 30233N1 Transfusion of Nonautologous Red Blood Cells into Peripheral Vein, Percutaneous Approach (ICD-10-PCS; 2021-05-08)
DX: K57.31 Diverticulosis of large intestine without perforation or abscess with bleeding (principal); D62 Acute posthemorrhagic anemia; E46 Unspecified protein-calorie malnutrition; I13.0 Hypertensive heart and chronic kidney disease with heart failure and stage 1 through stage 4 chronic kidney disease, or unspecified chronic kidney disease; I50.22 Chronic systolic (congestive) heart failure; K29.71 Gastritis, unspecified, with bleeding; Z20.822 Contact with and (suspected) exposure to COVID-19; K21.9 Gastro-esophageal reflux disease without esophagitis; D69.6 Thrombocytopenia, unspecified; E78.5 Hyperlipidemia, unspecified; N18.9 Chronic kidney disease, unspecified; I08.1 Rheumatic disorders of both mitral and tricuspid valves; I25.10 Atherosclerotic heart disease of native coronary artery without angina pectoris; E11.22 Type 2 diabetes mellitus with diabetic chronic kidney disease; Z79.899 Other long term (current) drug therapy; Z88.8 Allergy status to other drugs, medicaments and biological substances; Z91.048 Other nonmedicinal substance allergy status; Z68.35 Body mass index [BMI] 35.0-35.9, adult; Z95.1 Presence of aortocoronary bypass graft; Z95.0 Presence of cardiac pacemaker; D50.9 Iron deficiency anemia, unspecified; Z66 Do not resuscitate; K44.9 Diaphragmatic hernia without obstruction or gangrene
CPT/HCPCS: 10045; 62110; 62900; 70005